=== PATIENT | female | born 1995 | race Caucasian/White ===

== ENCOUNTER 2020-07-08 20:43 | Emergency (ER) | payer BC ==
[~2020-07-08] VITALS: Ht 162.6 cm; Wt 52.2 kg
[2020-07-08 20:43] VITALS: BP_SYST 136
--- NOTE | 2020-07-08 20:54 | NUR ---
Patient to ER bed 5 to gown for evaluation. Side rails up. Stat EKG at bedside by EMT.
--- NOTE | 2020-07-08 20:55 | NUR ---
Patient came to ER with family. C/O chest pain x 1 month. Patient had on and off chest pain over one month, difficulty to breath, right chest pain, radiate to right arm, numbness and tingling. 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
--- NOTE | 2020-07-08 21:07 | NUR ---
HOLLI Stanley at bedside examining patient.
--- NOTE | 2020-07-08 21:21 | NUR ---
BS 84, Dr. Reyes notified.
--- NOTE | 2020-07-08 21:22 | NUR ---
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 Patient tolerated well.
--- NOTE | 2020-07-08 21:25 | NUR ---
X-ray at bedside.
[2020-07-08 21:28] LABS: EOSINOPHILS # (AUTO) 0.1 K/uL (0.0-0.4); HEMOGLOBIN 12.1 g/dL (12.0-16.0); MONOCYTES # (AUTO) 0.4 K/uL (0.0-1.0); NEUTROPHILS # (AUTO) 2.4 K/uL (1.8-7.7); RED CELL DISTRIBUTION WIDTH 12.8 % (9.0-15.0)
--- NOTE | 2020-07-08 21:31 | NUR ---
Provide orange juice as request, Dr. Reyes is okay.
[2020-07-08 21:36] LABS: BASOPHILS % (AUTO) 0.6 % (0.0-2.0); EOSINOPHILS % (AUTO) 1.8 % (0.0-4.0); HEMATOCRIT 35.8 % (36-48); LYMPHOCYTES % (AUTO) 50.6 % (20.5-51.5); MEAN CORPUSCULAR HEMOGLOBIN 30 pg (27-31); MEAN CORPUSCULAR HGB CONC 34 % (32-36); MEAN CORPUSCULAR VOLUME 90 fL (79.0-98.0); MONOCYTES % (AUTO) 6.4 % (1.7-9.3); NEUTROPHILS % (AUTO) 40.6 % (40.0-70.0); PLATELET COUNT (AUTO) 230 K/uL (130-430); RED BLOOD CELL COUNT(AUTO) 3.98 MIL/uL (4.2-6.2)
[2020-07-08 21:44] LABS: ANION GAP 7 (5-15); CALCIUM 8.4 mg/dL (8.4-11.0); CHLORIDE 107 mmol/L (98-107); CREATININE 0.62 mg/dL (0.55-1.30); GLUCOSE 76 mg/dL (70-99); POTASSIUM 3.7 mmol/L (3.5-5.1); SODIUM SERUM 141 mmol/L (136-145); UREA NITROGEN, BLOOD 13 mg/dL (8-21)
[2020-07-08 21:53] LABS: ALANINE AMINOTRANSFERASE 22 U/L (12-78); ALBUMIN 3.9 g/dL (3.4-4.8); ASPARTATE AMINOTRANSFERASE 14 U/L (10-37); TOTAL BILIRUBIN 0.2 mg/dL (0.0-1.0)
[2020-07-08 21:57] LABS: GFR AFRICAN AMERICAN 153 mL/min (>90)
[2020-07-08 22:45] VITALS: BP_SYST 120
--- NOTE | 2020-07-08 22:45 | NUR ---
Patient given written and verbal discharge instructions and verbalizes understanding. ER MD discussed with patient the results and treatment provided. Patient in stable condition. ID arm band removed. NO Rx given. Patient educated on pain management and to follow up with PMD. Pain Scale 2/10. Opportunity for questions provided and answered.
== END 2020-07-08 22:45 | disposition home or self-care (01) ==
LOC: SED 20:43
DX: F41.9 Anxiety disorder, unspecified (principal); R07.89 Other chest pain
CPT/HCPCS: 36415; 71045; 80053; 82962; 84484; 85025; 85379; 93005; 99285